=== PATIENT | female | born 1985 | race Caucasian/White ===

== ENCOUNTER 2016-09-19 23:39 | Emergency (ER) | payer OTHER ==
--- NOTE | 2016-09-19 23:57 | ED CLINICAL REPORT ---
Clinical Report - Physicians/Mid Levels [facility] [address] [place] [place] [address] 09/19/2016 23:41 Patient: OTTO FONTANA Time Seen: 23:48. Arrived- By private vehicle. Historian- patient. HISTORY OF PRESENT ILLNESS Chief Complaint: TENDER AREA. This started several days ago and is still present. It is described as painful. It has been located on the left arm. No cause has been identified. Similar symptoms previously: Once. Recent medical care: Not recently seen/assessed. REVIEW OF SYSTEMS No fever, chills, sore throat, cough or difficulty breathing. No hoarseness, lump in throat, enlarged lymph nodes, headache or eye irritation. No chest pain, abdominal pain, nausea, diarrhea or difficulty with urination. No joint pain or vomiting. All systems otherwise negative, except as recorded above. PAST HISTORY Problems: Tetanus Status. Nasal Fracture. Hepatitis. Constipation. Abscess. Cystitis. Bowel Obstruction. Migraine Headache. Immunizations. LNMP - Last Normal Menstrual Period. Additional Surgeries: Appendectomy. Bowel Surgery. . Dilatation & Curettage. Tubal Ligation. Medications: None. Allergies: No Known Drug Allergy. SOCIAL HISTORY Smoker- current status unknown. Alcohol use. History of drug use: heroin. ADDITIONAL NOTES The nursing notes have been reviewed. PHYSICAL EXAM Vital Signs: 09/19/2016 23:45 BP: 117/75. HR: 118. RR: 18. O2 saturation: 100%. Temp: 98.3 F. Pain level now: 710. Have been reviewed. Appearance: Alert. Oriented X3. No acute distress. Eyes: Pupils equal, round and reactive to light. Conjunctivae and eyelids normal. ENT: Nose normal. Respiratory: No respiratory distress. Skin: Skin warm and dry. Medium area of cellulitis with tenderness, erythema and warmth to left arm (PT has a vague, 3 cm area of mild induration associated with the cellulitis. No fluctuance or clear-cut abscess.). Extremities: (Normal inspection, other than the cellulitis noted above.). Neuro: Oriented X 3. No motor deficit. No sensory deficit. LABS, X-RAYS, AND EKG Pulse Oximetry: 09/19/2016 23:45 O2 saturation: 100%. (FIO2 - room air). Interpretation: normal. PROGRESS AND PROCEDURES Course of Care: I d/w her that the induration may represent an early abscess, or it may represent induration from the cellulitis without a purulent collection. I have given the pt the option of I&D attempt with the understanding that nothing may come out at this time, or the option to do antibiotics and hot-packing. Pt stated she would like to do a trial of antibiotics before having I&D. Pt was given doses of Bactrim DS and of Toradol. Patient counseled in person regarding the patient's stable condition, diagnosis and need for follow-up. Concerns were addressed. Old medical records reviewed. Disposition: Discharged. Condition: stable. CLINICAL IMPRESSION Cellulitis of the left upper arm. INSTRUCTIONS Warnings: GENERAL WARNINGS: Return or contact your physician immediately if your condition worsens or changes unexpectedly, if not improving as expected, or if other problems arise. Prescription Medications: Bactrim DS 800 mg / 160 mg: take 1 tablet orally every 12 hours for 10 days. No refill. Substitution is permissible. Follow-up: Follow up with your doctor in four days if not better. Understanding of the discharge instructions verbalized by patient. (Electronically signed by Bindu Pink MD 09/20/2016 0:26)
--- NOTE | 2016-09-19 23:57 | ED CLINICAL REPORT ---
Clinical Report - Physicians/Mid Levels [facility] [address] [place] [place] [address] 09/19/2016 23:41 Patient: OTTO FONTANA Time Seen: 23:48. Arrived- By private vehicle. Historian- patient. HISTORY OF PRESENT ILLNESS Chief Complaint: TENDER AREA. This started several days ago and is still present. It is described as painful. It has been located on the left arm. No cause has been identified. Similar symptoms previously: Once. Recent medical care: Not recently seen/assessed. REVIEW OF SYSTEMS No fever, chills, sore throat, cough or difficulty breathing. No hoarseness, lump in throat, enlarged lymph nodes, headache or eye irritation. No chest pain, abdominal pain, nausea, diarrhea or difficulty with urination. No joint pain or vomiting. All systems otherwise negative, except as recorded above. PAST HISTORY Problems: Tetanus Status. Nasal Fracture. Hepatitis. Constipation. Abscess. Cystitis. Bowel Obstruction. Migraine Headache. Immunizations. LNMP - Last Normal Menstrual Period. Additional Surgeries: Appendectomy. Bowel Surgery. . Dilatation & Curettage. Tubal Ligation. Medications: None. Allergies: No Known Drug Allergy. SOCIAL HISTORY Smoker- current status unknown. Alcohol use. History of drug use: heroin. ADDITIONAL NOTES The nursing notes have been reviewed. PHYSICAL EXAM Vital Signs: 09/19/2016 23:45 BP: 117/75. HR: 118. RR: 18. O2 saturation: 100%. Temp: 98.3 F. Pain level now: 710. Have been reviewed. Appearance: Alert. Oriented X3. No acute distress. Eyes: Pupils equal, round and reactive to light. Conjunctivae and eyelids normal. ENT: Nose normal. Respiratory: No respiratory distress. Skin: Skin warm and dry. Medium area of cellulitis with tenderness, erythema and warmth to left arm (PT has a vague, 3 cm area of mild induration associated with the cellulitis. No fluctuance or clear-cut abscess.). Extremities: (Normal inspection, other than the cellulitis noted above.). Neuro: Oriented X 3. No motor deficit. No sensory deficit. LABS, X-RAYS, AND EKG Pulse Oximetry: 09/19/2016 23:45 O2 saturation: 100%. (FIO2 - room air). Interpretation: normal. PROGRESS AND PROCEDURES Course of Care: I d/w her that the induration may represent an early abscess, or it may represent induration from the cellulitis without a purulent collection. I have given the pt the option of I&D attempt with the understanding that nothing may come out at this time, or the option to do antibiotics and hot-packing. Pt stated she would like to do a trial of antibiotics before having I&D. Pt was given doses of Bactrim DS and of Toradol. Patient counseled in person regarding the patient's stable condition, diagnosis and need for follow-up. Concerns were addressed. Old medical records reviewed. Disposition: Discharged. Condition: stable. CLINICAL IMPRESSION Cellulitis of the left upper arm. INSTRUCTIONS Warnings: GENERAL WARNINGS: Return or contact your physician immediately if your condition worsens or changes unexpectedly, if not improving as expected, or if other problems arise. Prescription Medications: Bactrim DS 800 mg / 160 mg: take 1 tablet orally every 12 hours for 10 days. No refill. Substitution is permissible. Follow-up: Follow up with your doctor in four days if not better. Understanding of the discharge instructions verbalized by patient. (Electronically signed by Bindu Pink MD 09/20/2016 0:26)
--- NOTE | 2016-09-19 23:57 | ED NURSING NOTES ---
Clinical Report - Nurses [facility] [address] [place] [address] 09/19/2016 23:41 Patient: OTTO FONTANA TRIAGE Triage time 23:45 Sep 19 2016. Acuity: LEVEL 4. Chief Complaint: SKIN PROBLEM and TENDER AREA and . redness. 23:51 09/19/16. SEPSIS SCREEN: Sepsis Screen. Negative (no infection suspected/documented). --23:51 Jia Purcell R.N. 23:45 09/19/16. BP: 117/75. HR: 118. RR: 18. O2 saturation: 100%. Temp: 98.3 F. Pain level now: 01/24. --23:51 Jia Purcell R.N. Weight: 65.7 kg stated. Height/Length: 63 inches Per Patient. BMI: 25.7. --23:44 Jia Purcell R.N. Medications None. --23:50 Jia Purcell R.N. Allergies No Known Drug Allergy. --23:50 Jia Purcell R.N. Medication/allergy information source: the patient. --23:51 Jia Purcell R.N. History Arrived by private vehicle, and accompanied by friend. Reported as located on the left arm. Onset. (3 days). ( Admits to using IV/IM heroin daily. Onset 3 days ago in left upper outer arm. Red, tender area, pain with ROM). Treatment DIRECTOR TRANSPORTATION: None. PAST MEDICAL HX: Last normal menstrual period was 6 weeks ago. Sexual history - sexually active. Has not received tetanus. SOCIAL HX: Heavy tobacco smoker (cigarette)- 1 pack per day. Occasional alcohol use. History of heavy IV drug use: heroin. No infectious disease exposure. ABUSE ASSESSMENT: No report of abuse. NUTRITIONAL RISK ASSESSMENT: The nutritional risk assessment revealed no deficiencies. FUNCTIONAL ASSESSMENT: Functional assessment: no impairments noted. LEARNING NEEDS ASSESSMENT: The learning needs assessment revealed no barriers. SKIN INTEGRITY ASSESSMENT: Skin integrity risk assessment completed. No skin integrity risk identified. --23:51 Jia Purcell R.N. PROBLEMS: Bronchitis. Sprain. Tetanus Status. Contusion. Hepatitis. Abscess. Cystitis. Bowel Obstruction. --23:50 Jia Purcell R.N. ADDITIONAL SURGERIES: Appendectomy. Bowel Surgery. . Dilatation & Curettage. Tubal Ligation. --23:50 Jia Purcell R.N. Interventions ID band on patient. --23:51 Jia Purcell R.N. PHYSICAL ASSESSMENT 23:52 09/19/16. GENERAL / NEURO / PSYCH: Alert. Oriented X 4. HEENT: Pupils equal, round and reactive to light. RESPIRATORY: Breath sounds within normal limits. CVS: Pulses within normal limits. GI / : Abdomen nontender. SKIN: Skin is warm and dry. Skin tenderness- associated with erythema, swelling and increased warmth- left upper outer arm. --23:52 Jia Purcell R.N. NURSING PROGRESS NOTES 23:51 09/19/16. Patient gowned. Reassurance given. Two patient identifiers checked. Side rails up x 1. Bed placed in lowest position. Brakes of bed on. --23:51 Jia Purcell R.N. 00:00 09/20/2016 Bactrim DS (Sulfamethoxazole-TMP DS) PO Tablets 1 tab given. Allergies verified and confirmed 5 rights. --00:00 Jia Purcell R.N. 00:00 09/20/2016 Toradol (Ketorolac Tromethamine) IM 60 mg given. Given in the left gluteus bernard. Allergies verified and confirmed 5 rights. --00:00 Jia Purcell R.N. DISPOSITION / DISCHARGE 00:15 09/20/2016 Bactrim DS PO Response: no adverse reaction. --00:15 Jia Purcell R.N. 00:15 09/20/2016 Toradol IM Response: no adverse reaction. --00:15 Jia Purcell R.N. 00:15 09/20/16. Departure time: 00:15 Sep 20 2016. Condition at departure: improved and stable. The goals identified in the patient's plan of care were met. No learning barriers present. Discharge instructions provided and reviewed with the patient. Reviewed warnings (stop using heroin). Reviewed medication(s) side effects, precautions, dosing and course information. Prescription(s) given to the patient. Reviewed fever care and wound care instructions. Reviewed referral to a primary care physician for followup. Summary of care provided to patient via paper. Patient verbalized understanding. Written instructions provided in Kazakh. The patient was discharged home and accompanied by spouse. She left the Emergency Department ambulatory and via private vehicle. Spouse driving. --00:15 Jia Purcell R.N. 23:45 09/19/16. BP: 117/75. HR: 118. RR: 18. O2 saturation: 100%. Temp: 98.3 F. Pain level now: 01/24. --00:15 Jia Purcell R.N. Locked/Released at 09/20/2016 0:16 by Jia Purcell R.N.
--- NOTE | 2016-09-19 23:57 | ED ORDER SUMMARY ---
..... Patient: OTTO FONTANA OrderSheet [facility] VisitID: [id number] [address] [place] [address] 31y, F Registration Date/Time: 09/19/2016 ORDER SHEET Weight: 65.7 kg (stated) Allergies: No Known Drug Allergy GENERAL ORDERS: MEDICATION ORDERS: Toradol IM 60 mg (NOW) (23:55 09/19/2016 Bright JEWELL) (0:00 EInderbitzen R.N.) Bactrim DS PO (Tablet 800-160 mg) 1 tab (NOW) (23:56 09/19/2016 Bright JEWELL) (0:00 EInannetteerbitzen R.N.) IV FLUIDS: ORDER SHEET NOTES: [Electronically signed by Jia Purcell R.N. (00:16 09/20/2016)] [Electronically signed by Bindu Pink MD (00:26 09/20/2016)] [Electronically locked/signed by Jia Purcell R.N. (00:16 09/20/2016)]
--- NOTE | 2016-09-19 23:57 | ED ORDER SUMMARY ---
..... Patient: OTTO FONTANA OrderSheet [facility] VisitID: [id number] [address] [place] [address] 31y, F Registration Date/Time: 09/19/2016 ORDER SHEET Weight: 65.7 kg (stated) Allergies: No Known Drug Allergy GENERAL ORDERS: MEDICATION ORDERS: Toradol IM 60 mg (NOW) (23:55 09/19/2016 Bright JEWELL) (0:00 EInderbitzen R.N.) Bactrim DS PO (Tablet 800-160 mg) 1 tab (NOW) (23:56 09/19/2016 Bright JEWELL) (0:00 EInannetteerbitzen R.N.) IV FLUIDS: ORDER SHEET NOTES: [Electronically signed by Jia Purcell R.N. (00:16 09/20/2016)] [Electronically signed by Bindu Pink MD (00:26 09/20/2016)] [Electronically locked/signed by Jia Purcell R.N. (00:16 09/20/2016)]
--- NOTE | 2016-09-20 00:26 | ED MED RECONCILIATION SUMMARY ---
Patient: OTTO FONTANA Medication Reconciliation Report [facility] VisitID: [id number] [address] [place] [address] 31y, F Registration Date/Time: 09/19/2016 Weight: 65.7 kg Height/Length: 63 in. BMI: 25.7 ALLERGIES: No Known Drug Allergy The patient's Home Medications are listed below: NONE. The source(s) of the original Home Medication information: patient The following Medications were given to the patient in the Emergency Department: Bactrim DS [PO] PO 1 tab, administered: 09/20/2016 12:00:00 AM Toradol [IM] IM 60 mg, administered: 09/20/2016 12:00:00 AM The following Medications were prescribed to the patient: Bactrim DS 800 mg / 160 mg: take 1 tablet orally every 12 hours for 10 days. No refill. Substitution is permissible. -- Bindu Pink MD
--- NOTE | 2016-09-20 00:26 | ED MAR SUMMARY ---
..... Medication Administration Record [facility] [address] [place] [address] Patient: OTTO FONTANA Visit ID: [id number] 31y, F Weight: 65.7 kg Height/Length: 63 in BMI: 25.7 ALLERGIES: No Known Drug Allergy Given 00:00 09/20/2016 Jia Purcell R.N. Medication Administered: TORADOL [IM] (KETOROLAC TROMETHAMINE), Dose: 60 mg IM. Medication Ordered: Toradol IM 60 mg (NOW). Given 00:00 09/20/2016 Jia Purcell R.N. Medication Administered: BACTRIM DS [PO] (SULFAMETHOXAZOLE-TMP DS), Dose: 1 tab Tablets PO. Medication Ordered: Bactrim DS PO (Tablet 800-160 mg) 1 tab (NOW).
--- NOTE | 2016-09-20 00:26 | ED DISCHARGE INSTRUCTIONS ---
Patient: OTTO FONTANA General Instructions [facility] VisitID: [id number] [place] [address] 31y, F Registration Date/Time: 09/19/2016 Cellulitis of the left upper arm. INSTRUCTIONS Warnings: GENERAL WARNINGS: Return or contact your physician immediately if your condition worsens or changes unexpectedly, if not improving as expected, or if other problems arise. Prescription Medications: Bactrim DS 800 mg / 160 mg: take 1 tablet orally every 12 hours for 10 days. No refill. Substitution is permissible. Follow-up: Follow up with your doctor in four days if not better. Understanding of the discharge instructions verbalized by patient. ADDITIONAL INFORMATION Cellulitis You have an infection of the skin known as cellulitis. This usually starts with a scrape, cut, insect bite, blister or other opening in the skin which becomes infected. This is a serious condition. It must be watched closely to be sure the infection is not spreading. With antibiotic treatment, the size of the red area will gradually shrink in size until the skin returns to normal. This will take 7-10 days. The red area should never increase in size once the antibiotic medicine has been started. Occasionally, an infection will be resistant to one antibiotic and another one will have to be used. Home Care: 1) Limit the use of the affected part, since excess movement can cause the infection to spread. 2) If the infection is on your leg, walk as little as possible during the first few days of the treatment. Keep your leg elevated while sitting. This will reduce swelling. 3) Take all of the antibiotic medicine exactly as directed until it is gone. Be careful not to miss any doses, especially during the first seven days. Follow Up with your doctor or this facility as directed. Check the infected area daily for the warning signs listed below. Get Prompt Medical Attention if any of the following occur: -- Spreading area of redness -- Increasing swelling or pain -- Appearance of pus or drainage -- Fever over 100.4 F (38.0 C) oral, or over 101.4 F (38.6 C) rectal, after two days on antibiotics You have been given the following additional information: Cellulitis (Electronically signed by Bindu Pink MD 09/20/2016 0:26)
--- NOTE | 2016-09-20 00:26 | ED MED RECONCILIATION SUMMARY ---
Patient: OTTO FONTANA Medication Reconciliation Report [facility] VisitID: [id number] [address] [place] [address] 31y, F Registration Date/Time: 09/19/2016 Weight: 65.7 kg Height/Length: 63 in. BMI: 25.7 ALLERGIES: No Known Drug Allergy The patient's Home Medications are listed below: NONE. The source(s) of the original Home Medication information: patient The following Medications were given to the patient in the Emergency Department: Bactrim DS [PO] PO 1 tab, administered: 09/20/2016 12:00:00 AM Toradol [IM] IM 60 mg, administered: 09/20/2016 12:00:00 AM The following Medications were prescribed to the patient: Bactrim DS 800 mg / 160 mg: take 1 tablet orally every 12 hours for 10 days. No refill. Substitution is permissible. -- Bindu Pink MD
--- NOTE | 2016-09-20 00:26 | ED MAR SUMMARY ---
..... Medication Administration Record [facility] [address] [place] [address] Patient: OTTO FONTANA Visit ID: [id number] 31y, F Weight: 65.7 kg Height/Length: 63 in BMI: 25.7 ALLERGIES: No Known Drug Allergy Given 00:00 09/20/2016 Jia Purcell R.N. Medication Administered: TORADOL [IM] (KETOROLAC TROMETHAMINE), Dose: 60 mg IM. Medication Ordered: Toradol IM 60 mg (NOW). Given 00:00 09/20/2016 Jia Purcell R.N. Medication Administered: BACTRIM DS [PO] (SULFAMETHOXAZOLE-TMP DS), Dose: 1 tab Tablets PO. Medication Ordered: Bactrim DS PO (Tablet 800-160 mg) 1 tab (NOW).
== END 2016-09-20 00:15 | disposition home or self-care (01) ==
LOC: ED SRH 23:39
DX: L03.114 Cellulitis of left upper limb (principal)

== ENCOUNTER 2016-09-22 17:53 | Emergency (ER) | payer OTHER ==
--- NOTE | 2016-09-22 19:29 | DIAGNOSTIC IMAGING REPORT ---
PROCEDURE: US SOFT TISSUE ANYWHERE INDICATION: LEFT ARM INFECTION TECHNIQUE: Villalta scale and color Doppler sonographic images of the left upper arm erythematous area were obtained COMPARISON: None. FINDINGS: No significant skin thickening. There is a subcutaneous fluid collection in the area of redness in the left upper lateral arm measuring 4.2 x 4.1 x 1.8 cm. It is somewhat irregular but fairly well defined. There is increased vascularity in the peripheral tissues. The fluid collection begins about 1 cm below the skin surface. IMPRESSION: 1. Subcutaneous fluid collection, likely abscess, underlying an area of cellulitis in the left upper arm. 2. Findings conveyed by the technologist to the emergency room provider.
--- NOTE | 2016-09-23 02:37 | ED NURSING NOTES ---
Clinical Report - Nurses [facility] [place] [address] 09/22/2016 17:55 Patient: OTTO FONTANA TRIAGE Triage time 18:09. Acuity: LEVEL 4. Chief Complaint: SKIN LESION and . left arm. Alert. SEPSIS SCREEN: Sepsis Screen. Negative (no infection suspected/documented). --18:16 Katelin Douglas R.N. 18:09 09/22/16. BP: 111/65 taken on the right arm. HR: 102. RR: 18. O2 saturation: 100%. Temp: 97.7 F. Pain level now: 03/27. --18:16 Katelin Douglas R.N. Weight: 65.7 kg stated. Height/Length: 63 inches Per Patient. BMI: 25.7. --18:11 Katelin Douglas R.N. Medications Bactrim DS Oral. --18:10 Katelin Douglas R.N. ClonazePAM Oral 1 mg, as needed, according to JAMIL report, pt did not mention this med. --19:02 Katelin Douglas R.N. Allergies No Known Drug Allergy. --18:10 Katelin Douglas R.N. History Arrived by private vehicle. Historian: patient. Primary physician (Janine Fitzpatrick). Reported as (left upper arm). Onset. (5 days ago). Treatment DIRECTOR SERVICE: (Aleve). PAST MEDICAL HX: Immunizations: status is unknown. Denies current . SOCIAL HX: Heavy tobacco smoker (cigarette)- 1 pack per day. History of drug use. Is a recovering addict. (starting suboxone in next couple days). No alcohol use. SELF HARM ASSESSMENT: A self harm assessment was performed. The patient answered "no" to the question "Do you have thoughts of harming or killing yourself?". ABUSE ASSESSMENT: Abuse assessment: ('yes") The patient was asked "Do you feel safe in your home?". --18:16 Katelin Douglas R.N. Accompanied by friend. --18:16 Katelin Douglas R.N. PROBLEMS: Cellulitis. Bronchitis. Abrasion(s). Nasal Fracture. Contusion. Hepatitis. Constipation. Abscess. Cystitis. Bowel Obstruction. Migraine Headache. --18:09 Katelin Douglas R.N. ADDITIONAL SURGERIES: Appendectomy. Bowel Surgery. . Dilatation & Curettage. Tubal Ligation. --18:09 Katelin Douglas R.N. Assessment The patient states feels the same. --18:16 Katelin Douglas R.N. Interventions ID band on patient. To room. --18:16 Katelin Douglas R.N. PHYSICAL ASSESSMENT 18:16 09/22/16. GENERAL / NEURO / PSYCH: Alert. Oriented X 4. --18:16 Katelin Douglas R.N. NURSING PROGRESS NOTES 18:16 09/22/16. Head of bed elevated. Reassurance given. Patient identifiers checked. Call light placed in reach. Bed placed in lowest position. Patient ready for evaluation- chart flagged. --18:16 Katelin Douglas R.N. 18:56 09/22/2016 Ultram (TraMADol HCl) PO 50 mg given. Allergies verified, confirmed 5 rights and sedative warning given. --18:56 Katelin Douglas R.N. 18:57 09/22/16. ( Pt's friend came to nurses station wanting pain med for pt., which had been ordered about 5 minutes prior, med given, asked pt to use her call light if she needs anything.). --18:57 Katelin Douglas R.N. 18:57 09/22/16. ( Ultrasound in room). --18:57 Katelin Douglas R.N. Care transferred and report received. --19:07 Andrew Gu correction to prior entry -. Care transferred and report received. --19:08 Lexii Flores R.N. 19:58 09/22/2016 Demerol (Meperidine HCl) IM 50 mg given. Given in the left ventral gluteus. Allergies verified, confirmed 5 rights and sedative warning given to the patient. --19:58 Lexii Flores R.N. I & D: Incision and Drainage of abscess performed by ED physician. Preparation: Incision and Drainage tray set up with 2% lidocaine. Post-procedure: bleeding controlled. --20:30 Lexii Flores R.N. Applied clean dressing consisting of 4x4 gauze. Secured with tape. --20:30 Lexii Flores R.N. DISPOSITION / DISCHARGE 20:30 09/22/16. BP: 109/69. HR: 100. RR: 15. O2 saturation: 97% on room air. Temp: 98 F (oral). Henderson- pain scale: /10. --20:31 Lexii Flores R.N. Condition at departure: improved and stable. No learning barriers present. Discharge instructions provided and reviewed with the patient. Reviewed medication(s) side effects, precautions, dosing and course information. Prescription(s) given to the patient. Patient verbalized understanding. Written instructions provided in Peruvian. The patient was discharged home and accompanied by seat trimmer. She left the Emergency Department ambulatory and via private vehicle. Human Resources Office Manager driving. --20:37 Lexii Flores R.N. Locked/Released at 09/22/2016 20:37 by Lexii Flores R.N.
--- NOTE | 2016-09-23 02:37 | ED CLINICAL REPORT ---
Clinical Report - Physicians/Mid Levels [facility] [address] [place] [address] 09/22/2016 17:55 Patient: OTTO FONTANA Time Seen: 18:09. Arrived- By private vehicle. Historian- patient. CPT: ER phys charges level 3 plus (#360040). Abscess complicated I&D (#[id number]). HISTORY OF PRESENT ILLNESS Chief Complaint: UPPER EXTREMITY PAIN and SWELLING. Severity is described as being moderate in degree. It has become recently worse. The quality is noted to be sharp, aching and "pain". 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 Symptoms located in the area of the left arm. No chest pain, difficulty breathing, sensory loss, motor loss or repetitive hand use at work. She has had redness and swelling. Patient notes an injury. Mechanism of injury- (IVDA heroin). 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 Seen for similar symptoms. Evaluation/treatment: antibiotic prescribed. Diagnosis: cellulitis. REVIEW OF SYSTEMS No fever, chills, headache, sore throat or cough. No enlarged lymph nodes, neck pain, abdominal pain, nausea or vomiting. No difficulty with urination or urinary frequency. She has had skin rash. All systems otherwise negative, except as recorded above. PAST HISTORY Prior I&D. Medications: ClonazePAM Oral 1 mg, as needed, according to JAMIL report, pt did not mention this med. Bactrim DS Oral. Allergies: No Known Drug Allergy. SOCIAL HISTORY History of heavy IV drug use: heroin. Is a recovering addict. ADDITIONAL NOTES The nursing notes have been reviewed. PHYSICAL EXAM Vital Signs: 09/22/2016 18:09 BP: 111/65. HR: 102. RR: 18. O2 saturation: 100%. Temp: 97.7 F. Pain level now: 9/10. Appearance: Alert. Anxious. Appears to be in pain. Patient in mild distress. Eyes: Eyes normal inspection. ENT: Pharynx normal. Neck: Normal inspection. CVS: Normal heart rate and rhythm. Heart sounds normal. No cardiac murmur. Respiratory: No respiratory distress. Abdomen: Soft and nontender. Back: Normal inspection. Skin: Skin intact. Skin warm. Extremities: Left arm: moderate erythema, tenderness and swelling located in the lower arm. Neurovascular intact distally. No ecchymosis or deformity. Neuro: Oriented X 3. No motor deficit. No sensory deficit. LABS, X-RAYS, AND EKG Laboratory Tests: Culture, Wound Deep: (CURTIS: 09/22/2016 20:25) ( MsgRcvd 09/24/2016 12:01) IP SPECIMEN DESCRIPTION: SWAB Test Result Flag Units (Reference) GRAM STAIN, WOUND, DEEP EPITHELIAL CELLS: FEW GRAM POSITIVE COCCI: FEW WHITE BLOOD CELLS: RARE POLY -- ARM CULTURE, WOUND DEEP, AEROBIC DATE: 09/24/16 PRELIM REPORT: PRELIMINARY REPORT #2 -- STAAUR GROWTH: HEAVY GROWTH ID AND SENS TO FOLLOW: SENSITIVITY TO FOLLOW CULTURE, ANAEROBIC, WOUND DEEP DATE: 09/24/16 NO ANAEROBIC GROWTH AT:: NO ANAEROBES ISOLATED AT 2 DAYS PRELIM REPORT: PRELIMINARY REPORT #1 . PROGRESS AND PROCEDURES Incision & Drainage of Abscess: The abscess is located in the left arm. The risks of the procedure, benefits and alternatives were explained. Anesthesia provided using 2% lidocaine with bicarb. Skin cleansed with Hibiclens. Ultrasound utilized to confirm presence and determine location of abscess. The abscess was incised with a #11 surgical blade. A moderate amount of pus was drained. Cavity was irrigated with saline and packed with gauze. Sample obtained for cultures and gram stain. A dressing was applied. Estimated blood loss: 3 mL. Course of Care: Pt states she will not let practitioner work on abscess until she gets something for pain. Ultram 50 mg po given so patient would allow US of her arm. Pt indicates the ultram did not help but allowed the US. US shows a 4 by 4 cm abscess . 19:53 09/22/16. Pt now insists on pain medication again before I&D . Will not allow attempt until gets "a shot". Says she got a shot last time when seen here 3 days ago and diagnosed with cellulitis and given antibiotics. The shot was toradol 60 mg IM. This is offered again to the patient as it worked the first time. Pt refused this and specifically asked for a narcotic shot as she claimed the toradol would not help this worsening pain. Pt refused to try the toradol again. At that point the patient got quiet aggressive and elevated. She demanded a shot. I went to order a shot and patient was getting dressed to leave. She was notified that a shot is in process and she decided to stay and get her I&D. Demerol 50 mg IM ordered. Did not feel this would be harmful as long as out patient narcotics not ordered as the patient has a history of heroin and meth abuse. Patient/family counseled. Disposition: Discharged. Condition: stable and improved. CLINICAL IMPRESSION Single deep abscess to the left upper extremity with incision and drainage. Substance abuse problems: abuse of opiates and methamphetamine. Substance dependence problems: dependence on opiates and methamphetamine. INSTRUCTIONS Elevate affected areas above chest level today, for one days until better. Protect wound and keep wound area clean. Leave dressing in place until seen in follow-up. No strenuous activity. Warnings: Further evaluation is necessary. SEDATIVE MEDICATION: You were given sedative medication during your visit. Do not drive or operate dangerous machinery. Your Current Medications: CONTINUE TAKING THE FOLLOWING MEDICATIONS: Bactrim DS Oral. ClonazePAM Oral : 1 mg, prn, according to JAMIL report, pt did not mention this med. Prescription Medications: Cephalexin 500 mg: take 1 capsule orally every 6 hours for 10 days. No refill. Bactrim DS: take 1 tablet orally every 12 hours for 5 days. No refill. Substitution is not permissible. Follow-up: Follow up with your doctor in two days. Call for an appointment. Understanding of the discharge instructions verbalized by patient. Discharge instructions reviewed with and understanding was verbalized by international relations teacher. (Electronically signed by Ruslan Murray MD 09/24/2016 19:05)
--- NOTE | 2016-09-23 02:37 | ED NURSING NOTES ---
Clinical Report - Nurses [facility] [place] [address] 09/22/2016 17:55 Patient: OTTO FONTANA TRIAGE Triage time 18:09. Acuity: LEVEL 4. Chief Complaint: SKIN LESION and . left arm. Alert. SEPSIS SCREEN: Sepsis Screen. Negative (no infection suspected/documented). --18:16 Katelin Douglas R.N. 18:09 09/22/16. BP: 111/65 taken on the right arm. HR: 102. RR: 18. O2 saturation: 100%. Temp: 97.7 F. Pain level now: 03/27. --18:16 Katelin Douglas R.N. Weight: 65.7 kg stated. Height/Length: 63 inches Per Patient. BMI: 25.7. --18:11 Katelin Douglas R.N. Medications Bactrim DS Oral. --18:10 Katelin Douglas R.N. ClonazePAM Oral 1 mg, as needed, according to JAMIL report, pt did not mention this med. --19:02 Katelin Douglas R.N. Allergies No Known Drug Allergy. --18:10 Katelin Douglas R.N. History Arrived by private vehicle. Historian: patient. Primary physician (Janine Fitzpatrick). Reported as (left upper arm). Onset. (5 days ago). 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 PAST MEDICAL HX: Immunizations: status is unknown. Denies current . SOCIAL HX: Heavy tobacco smoker (cigarette)- 1 pack per day. History of drug use. Is a recovering addict. (starting suboxone in next couple days). No alcohol use. SELF HARM ASSESSMENT: A self harm assessment was performed. The patient answered "no" to the question "Do you have thoughts of harming or killing yourself?". ABUSE ASSESSMENT: Abuse assessment: ('yes") The patient was asked "Do you feel safe in your home?". --18:16 Katelin Douglas R.N. Accompanied by friend. --18:16 Katelin Douglas R.N. PROBLEMS: Cellulitis. Bronchitis. Abrasion(s). Nasal Fracture. Contusion. Hepatitis. Constipation. Abscess. Cystitis. Bowel Obstruction. Migraine Headache. --18:09 Katelin Douglas R.N. ADDITIONAL SURGERIES: Appendectomy. Bowel Surgery. . Dilatation & Curettage. Tubal Ligation. --18:09 Katelin Douglas R.N. Assessment The patient states feels the same. --18:16 Katelin Douglas R.N. Interventions ID band on patient. To room. --18:16 Katelin Douglas R.N. PHYSICAL ASSESSMENT 18:16 09/22/16. GENERAL / NEURO / PSYCH: Alert. Oriented X 4. --18:16 Katelin Douglas R.N. NURSING PROGRESS NOTES 18:16 09/22/16. Head of bed elevated. Reassurance given. Patient identifiers checked. Call light placed in reach. Bed placed in lowest position. Patient ready for evaluation- chart flagged. --18:16 Katelin Douglas R.N. 18:56 09/22/2016 Ultram (TraMADol HCl) PO 50 mg given. Allergies verified, confirmed 5 rights and sedative warning given. --18:56 Katelin Douglas R.N. 18:57 09/22/16. ( Pt's friend came to nurses station wanting pain med for pt., which had been ordered about 5 minutes prior, med given, asked pt to use her call light if she needs anything.). --18:57 Katelin Douglas R.N. 18:57 09/22/16. ( Ultrasound in room). --18:57 Katelni Douglas R.N. Care transferred and report received. --19:07 Andrew Gu correction to prior entry -. Care transferred and report received. --19:08 Lexii Flores R.N. 19:58 09/22/2016 Demerol (Meperidine HCl) IM 50 mg given. Given in the left ventral gluteus. Allergies verified, confirmed 5 rights and sedative warning given to the patient. --19:58 Lexii Flores R.N. I & D: Incision and Drainage of abscess performed by ED physician. Preparation: Incision and Drainage tray set up with 2% lidocaine. Post-procedure: bleeding controlled. --20:30 Lexii Flores R.N. Applied clean dressing consisting of 4x4 gauze. Secured with tape. --20:30 Lexii Flores R.N. DISPOSITION / DISCHARGE 20:30 09/22/16. BP: 109/69. HR: 100. RR: 15. O2 saturation: 97% on room air. Temp: 98 F (oral). Henderson- pain scale: /10. --20:31 Lexii Flores R.N. Condition at departure: improved and stable. No learning barriers present. Discharge instructions provided and reviewed with the patient. Reviewed medication(s) side effects, precautions, dosing and course information. Prescription(s) given to the patient. Patient verbalized understanding. Written instructions provided in Welsh. The patient was discharged home and accompanied by drilling contractor. She left the Emergency Department ambulatory and via private vehicle. Teacher Asst driving. --20:37 Lexii Flores R.N. Locked/Released at 09/22/2016 20:37 by Lexii Flores R.N.
--- NOTE | 2016-09-23 02:37 | ED CLINICAL REPORT ---
Clinical Report - Physicians/Mid Levels [facility] [address] [place] [address] 09/22/2016 17:55 Patient: OTTO FONTANA Time Seen: 18:09. Arrived- By private vehicle. Historian- patient. CPT: ER phys charges level 3 plus (#[id number]). Abscess complicated I&D (#[id number]). HISTORY OF PRESENT ILLNESS Chief Complaint: UPPER EXTREMITY PAIN and SWELLING. Severity is described as being moderate in degree. It has become recently worse. The quality is noted to be sharp, aching and "pain". 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 Symptoms located in the area of the left arm. No chest pain, difficulty breathing, sensory loss, motor loss or repetitive hand use at work. She has had redness and swelling. Patient notes an injury. Mechanism of injury- (IVDA heroin). 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 Seen for similar symptoms. Evaluation/treatment: antibiotic prescribed. Diagnosis: cellulitis. REVIEW OF SYSTEMS No fever, chills, headache, sore throat or cough. No enlarged lymph nodes, neck pain, abdominal pain, nausea or vomiting. No difficulty with urination or urinary frequency. She has had skin rash. All systems otherwise negative, except as recorded above. PAST HISTORY Prior I&D. Medications: ClonazePAM Oral 1 mg, as needed, according to JAMIL report, pt did not mention this med. Bactrim DS Oral. Allergies: No Known Drug Allergy. SOCIAL HISTORY History of heavy IV drug use: heroin. Is a recovering addict. ADDITIONAL NOTES The nursing notes have been reviewed. PHYSICAL EXAM Vital Signs: 09/22/2016 18:09 BP: 111/65. HR: 102. RR: 18. O2 saturation: 100%. Temp: 97.7 F. Pain level now: 9/10. Appearance: Alert. Anxious. Appears to be in pain. Patient in mild distress. Eyes: Eyes normal inspection. ENT: Pharynx normal. Neck: Normal inspection. CVS: Normal heart rate and rhythm. Heart sounds normal. No cardiac murmur. Respiratory: No respiratory distress. Abdomen: Soft and nontender. Back: Normal inspection. Skin: Skin intact. Skin warm. Extremities: Left arm: moderate erythema, tenderness and swelling located in the lower arm. Neurovascular intact distally. No ecchymosis or deformity. Neuro: Oriented X 3. No motor deficit. No sensory deficit. LABS, X-RAYS, AND EKG Laboratory Tests: Culture, Wound Deep: (CURTIS: 09/22/2016 20:25) ( MsgRcvd 09/24/2016 12:01) IP SPECIMEN DESCRIPTION: SWAB Test Result Flag Units (Reference) GRAM STAIN, WOUND, DEEP EPITHELIAL CELLS: FEW GRAM POSITIVE COCCI: FEW WHITE BLOOD CELLS: RARE POLY -- ARM CULTURE, WOUND DEEP, AEROBIC DATE: 09/24/16 PRELIM REPORT: PRELIMINARY REPORT #2 -- STAAUR GROWTH: HEAVY GROWTH ID AND SENS TO FOLLOW: SENSITIVITY TO FOLLOW CULTURE, ANAEROBIC, WOUND DEEP DATE: 09/24/16 NO ANAEROBIC GROWTH AT:: NO ANAEROBES ISOLATED AT 2 DAYS PRELIM REPORT: PRELIMINARY REPORT #1 . PROGRESS AND PROCEDURES Incision & Drainage of Abscess: The abscess is located in the left arm. The risks of the procedure, benefits and alternatives were explained. Anesthesia provided using 2% lidocaine with bicarb. Skin cleansed with Hibiclens. Ultrasound utilized to confirm presence and determine location of abscess. The abscess was incised with a #11 surgical blade. A moderate amount of pus was drained. Cavity was irrigated with saline and packed with gauze. Sample obtained for cultures and gram stain. A dressing was applied. Estimated blood loss: 3 mL. Course of Care: Pt states she will not let practitioner work on abscess until she gets something for pain. Ultram 50 mg po given so patient would allow US of her arm. Pt indicates the ultram did not help but allowed the US. US shows a 4 by 4 cm abscess . 19:53 09/22/16. Pt now insists on pain medication again before I&D . Will not allow attempt until gets "a shot". Says she got a shot last time when seen here 3 days ago and diagnosed with cellulitis and given antibiotics. The shot was toradol 60 mg IM. This is offered again to the patient as it worked the first time. Pt refused this and specifically asked for a narcotic shot as she claimed the toradol would not help this worsening pain. Pt refused to try the toradol again. At that point the patient got quiet aggressive and elevated. She demanded a shot. I went to order a shot and patient was getting dressed to leave. She was notified that a shot is in process and she decided to stay and get her I&D. Demerol 50 mg IM ordered. Did not feel this would be harmful as long as out patient narcotics not ordered as the patient has a history of heroin and meth abuse. Patient/family counseled. Disposition: Discharged. Condition: stable and improved. CLINICAL IMPRESSION Single deep abscess to the left upper extremity with incision and drainage. Substance abuse problems: abuse of opiates and methamphetamine. Substance dependence problems: dependence on opiates and methamphetamine. INSTRUCTIONS Elevate affected areas above chest level today, for one days until better. Protect wound and keep wound area clean. Leave dressing in place until seen in follow-up. No strenuous activity. Warnings: Further evaluation is necessary. SEDATIVE MEDICATION: You were given sedative medication during your visit. Do not drive or operate dangerous machinery. Your Current Medications: CONTINUE TAKING THE FOLLOWING MEDICATIONS: Bactrim DS Oral. ClonazePAM Oral : 1 mg, prn, according to JAMIL report, pt did not mention this med. Prescription Medications: Cephalexin 500 mg: take 1 capsule orally every 6 hours for 10 days. No refill. Bactrim DS: take 1 tablet orally every 12 hours for 5 days. No refill. Substitution is not permissible. Follow-up: Follow up with your doctor in two days. Call for an appointment. Understanding of the discharge instructions verbalized by patient. Discharge instructions reviewed with and understanding was verbalized by mac artist. (Electronically signed by Ruslan Murray MD 09/24/2016 19:05)
--- NOTE | 2016-09-23 02:37 | ED ORDER SUMMARY ---
..... Patient: OTTO FONTANA OrderSheet [facility] VisitID: [id number] [place] [address] 31y, F Registration Date/Time: 09/22/2016 ORDER SHEET Weight: 65.7 kg (stated) Allergies: No Known Drug Allergy GENERAL ORDERS: US Soft Tissue Anywhere (left arm) (r/o left arm abscess. ) Urgent (18:45 09/22/2016 Oralia JEWELL) (19:08 Meryl R.N.) Culture, Wound Deep (Arm) (swab) Urgent (20:23 09/22/2016 Oralia JEWELL) (Ack 20:28 Sylvainegekimana) (20:34 Jadenekimana) MEDICATION ORDERS: Ultram PO 50 mg (NOW) (18:49 09/22/2016 Oralia JEWELL) (18:56 LSullivan R.N.) Demerol IM 50 mg (NOW) (19:48 09/22/2016 Oralia JEWELL) (Ack 19:51 RCollier R.N.) (19:58 RCollier R.N.) IV FLUIDS: ORDER SHEET NOTES: [Electronically signed by Lexii Flores R.N. (20:37 09/22/2016)] [Electronically signed by Ruslan Murray MD (19:05 09/24/2016)] [Electronically locked/signed by Lexii Flores R.N. (20:37 09/22/2016)]
--- NOTE | 2016-09-23 02:37 | ED ORDER SUMMARY ---
..... Patient: OTTO FONTANA OrderSheet [facility] VisitID: [id number] [place] [address] 31y, F Registration Date/Time: 09/22/2016 ORDER SHEET Weight: 65.7 kg (stated) Allergies: No Known Drug Allergy GENERAL ORDERS: US Soft Tissue Anywhere (left arm) (r/o left arm abscess. ) Urgent (18:45 09/22/2016 Oralia JEWELL) (19:08 Meryl R.N.) Culture, Wound Deep (Arm) (swab) Urgent (20:23 09/22/2016 Oralia JEWELL) (Ack 20:28 Sylvainegekimana) (20:34 Jadenekimana) MEDICATION ORDERS: Ultram PO 50 mg (NOW) (18:49 09/22/2016 Oralia JEWELL) (18:56 LSullivan R.N.) Demerol IM 50 mg (NOW) (19:48 09/22/2016 Oralia JEWELL) (Ack 19:51 RCollier R.N.) (19:58 RCollier R.N.) IV FLUIDS: ORDER SHEET NOTES: [Electronically signed by Lexii Flores R.N. (20:37 09/22/2016)] [Electronically signed by Ruslan Murray MD (19:05 09/24/2016)] [Electronically locked/signed by Lexii Flores R.N. (20:37 09/22/2016)]
--- NOTE | 2016-09-24 19:06 | ED DISCHARGE INSTRUCTIONS ---
Patient: OTTO FONTANA General Instructions [facility] VisitID: [id number] [place] [address] 31y, F Registration Date/Time: 09/22/2016 Single deep abscess to the left upper extremity with incision and drainage. Substance abuse problems: abuse of opiates and methamphetamine. Substance dependence problems: dependence on opiates and methamphetamine. INSTRUCTIONS Elevate affected areas above chest level today, for one days until better. Protect wound and keep wound area clean. Leave dressing in place until seen in follow-up. No strenuous activity. Warnings: Further evaluation is necessary. SEDATIVE MEDICATION: You were given sedative medication during your visit. Do not drive or operate dangerous machinery. Your Current Medications: CONTINUE TAKING THE FOLLOWING MEDICATIONS: Bactrim DS Oral. ClonazePAM Oral : 1 mg, prn, according to JAMIL report, pt did not mention this med. Prescription Medications: Cephalexin 500 mg: take 1 capsule orally every 6 hours for 10 days. No refill. Bactrim DS: take 1 tablet orally every 12 hours for 5 days. No refill. Substitution is not permissible. Follow-up: Follow up with your doctor in two days. Call for an appointment. Understanding of the discharge instructions verbalized by patient. Discharge instructions reviewed with and understanding was verbalized by ornamental painter. ADDITIONAL INFORMATION Abscess [Incision & Drainage] An abscess (sometimes called a boil) occurs when bacteria get trapped under the skin and begin to grow. Pus forms inside the abscess as the body responds to the bacteria. An abscess can occur with an insect bite, ingrown hair, blocked oil gland, pimple, cyst, or puncture wound. Treatment of your abscess has required an incision to drain the pus. If the abscess pocket was large, a gauze packing may have been inserted. This will need to be removed and possibly replaced on your next visit. Antibiotics are not required in the treatment of a simple abscess, unless the infection is spreading into the skin around the wound (known as cellulitis). Healing of the wound will take about one to two weeks depending on the size of the abscess. Healthy tissue will grow from the bottom and sides of the opening until it seals over. Home Care: The wound may drain for the first two days. Cover the wound with a clean dry dressing. If the dressing becomes soaked with blood or pus, change it. If a gauze packing was placed inside the abscess cavity, you may be advised to remove it yourself. You may do this in the shower. Once the packing is removed, you should wash the area in the shower or bath 3 to 4 times a day, until the skin opening has closed. If you were prescribed antibiotics, take them as directed until they are all gone. You may use acetaminophen (Tylenol) or ibuprofen (Motrin, Advil) to control pain, unless another pain medicine was prescribed. [ NOTE: If you have liver disease or ever had a stomach ulcer, talk with your doctor before using these medicines.] Follow Up with your doctor as advised by our staff. If a gauze packing was inserted in your wound, it should be removed in 1-2 days. Check your wound every day for the signs of worsening infection listed below. Get Prompt Medical Attention if any of the following occur: Increasing redness or swelling Red streaks in the skin leading away from the wound Increasing local pain or swelling Continued pus draining from the wound two days after treatment Fever of 100.4F (38C) or higher, or as directed by your healthcare provider Staph Infection (MRSA) "Staph" is the short name for the common bacteria called "staphylococcus aureus". Staph bacteria are often present on the skin without causing an infection. If it gets under the skin an infection occurs. This causes redness, tenderness, swelling and sometimes fluid drainage. MRSA stands for "Methicillin-Resistant Staph Aureus". Unlike a common staph infection, MRSA bacteria are resistant to the usual antibiotics and harder to treat. Also, MRSA is more toxic than common staph bacteria. It can spread quickly throughout the body and cause a life-threatening illness. MRSA is spread to others by direct physical contact with the bacteria. MRSA can also be transmitted from items contaminated by a person who has the bacteria, such as bandages, towels, bed sheets, or sports equipment. It is not spread through the air. Once you have a MRSA skin infection, you are at risk of having it recur in the future. If MRSA infection is suspected, the doctor may take a wound culture to confirm the diagnosis. Any abscess will be drained. One or sometimes two antibiotics that work against MRSA will be prescribed. Home Care: 1) Take any antibiotics prescribed exactly as directed until they are gone. 2) Follow the same washing procedures as outlined for Household Members below. 3) Keep draining wounds covered with clean, dry bandages. Change dressings as they become soiled. 4) You and those in contact with you should wash their hands frequently with soap and warm water or use an alcohol-based hand wash barrel leader. Do this after each time you change the bandage or touch the wound. 5) Avoid sharing personal items such as towels, washcloths, razors, clothing, or uniforms. Wash soiled sheets, towels or clothes in hot water with laundry detergent. Use an automatic clothes dryer set on high to kill any remaining bacteria. 6) Remove any artificial nails and nail tunisian. 7) If you use a gym, wipe down equipment before and after each use. Treatment Of Household Members If you have been diagnosed with possible MRSA infection, those living with you are at higher risk of carrying the bacteria on their skin or in their nose, even if there is no sign of infection. Bacteria must be removed from the skin of all household members (including you) at the same time, so that it is not passed back and forth. Advise them to remove the bacteria as follows: Wash your whole body (scalp to toes) daily for five days with Hibiclens (chlorhexidine). Scrub fingernails with a brush for one minute twice a day. If any skin infections are present (boils, abscess, infected cut) these must be treated by a doctor. Washing alone will not treat a MRSA infection. Clean counter tops and children's toys; do not share personal items such as toothbrush and razors. It is okay to share glasses, plates, utensils. If antibiotic ointment was prescribed use it as directed. Follow Up with your doctor or as advised by our staff. If a wound culture was taken, call as directed in two days to obtain the results. If the culture result is positive for MRSA, tell medical personnel in the future that you were treated for this type of infection. Get Prompt Medical Attention if any of the following occur: -- Increasing redness, swelling or pain -- Red streaks in the skin around the wound -- Weakness or dizziness -- New appearance of pus or drainage from the wound -- New fever over 100.4 F (38.0 C) Cephalexin Monohydrate Oral tablet What is this medicine? CEPHALEXIN (sef a MADELINE in) is a cephalosporin antibiotic. It is used to treat certain kinds of bacterial infections It will not work for colds, flu, or other viral infections. How should I use this medicine? Take this medicine by mouth with a full glass of water. Follow the directions on the prescription label. This medicine can be taken with or without food. Take your medicine at regular intervals. Do not take your medicine more often than directed. Take all of your medicine as directed even if you think you are better. Do not skip doses or stop your medicine early. Talk to your machine egg washer regarding the use of this medicine in children. While this drug may be prescribed for selected conditions, precautions do apply. What side effects may I notice from receiving this medicine? Side effects that you should report to your doctor or health manager medicare marketing as soon as possible: allergic reactions like skin rash, itching or hives, swelling of the face, lips, or tongue breathing problems pain or trouble passing urine redness, blistering, peeling or loosening of the skin, including inside the mouth severe or watery diarrhea unusually weak or tired yellowing of the eyes, skin Side effects that usually do not require medical attention (report to your doctor or health manager medicare marketing if they continue or are bothersome): gas or heartburn genital or anal irritation headache joint or muscle pain nausea, vomiting What may interact with this medicine? probenecid some other antibiotics What if I miss a dose? If you miss a dose, take it as soon as you can. If it is almost time for your next dose, take only that dose. Do not take double or extra doses. There should be at least 4 to 6 hours between doses. Where should I keep my medicine? Keep out of the reach of children. Store at room temperature between 59 and 86 degrees F (15 and 30 degrees C). Throw away any unused medicine after the expiration date. What should I tell my health care provider before I take this medicine? They need to know if you have any of these conditions: kidney disease stomach or intestine problems, especially colitis an unusual or allergic reaction to cephalexin, other cephalosporins, penicillins, other antibiotics, medicines, foods, dyes or preservatives or trying to get breast-feeding What should I watch for while using this medicine? Tell your doctor or health manager medicare marketing if your symptoms do not begin to improve in a few days. Do not treat diarrhea with over the counter products. Contact your doctor if you have diarrhea that lasts more than 2 days or if it is severe and watery. If you have diabetes, you may get a false-positive result for sugar in your urine. Check with your doctor or health manager medicare marketing. Sulfamethoxazole, Trimethoprim Oral tablet What is this medicine? SULFAMETHOXAZOLE; TRIMETHOPRIM or SMX-TMP (suhl fuh meth OK airam zohl; trye METH oh prim) is a combination of a sulfonamide antibiotic and a second antibiotic, trimethoprim. It is used to treat or prevent certain kinds of bacterial infections. It will not work for colds, flu, or other viral infections. How should I use this medicine? Take this medicine by mouth with a full glass of water. Follow the directions on the prescription label. Take your medicine at regular intervals. Do not take it more often than directed. Do not skip doses or stop your medicine early. Talk to your machine egg washer regarding the use of this medicine in children. Special care may be needed. This medicine has been used in children as young as 2 months of age. What side effects may I notice from receiving this medicine? Side effects that you should report to your doctor or health manager medicare marketing as soon as possible: allergic reactions like skin rash or hives, swelling of the face, lips, or tongue breathing problems fever or chills, sore throat irregular heartbeat, chest pain joint or muscle pain pain or difficulty passing urine red pinpoint spots on skin redness, blistering, peeling or loosening of the skin, including inside the mouth unusual bleeding or bruising unusually weak or tired yellowing of the eyes or skin Side effects that usually do not require medical attention (report to your doctor or health manager medicare marketing if they continue or are bothersome): diarrhea dizziness headache loss of appetite nausea, vomiting nervousness What may interact with this medicine? Do not take this medicine with any of the following medications: aminobenzoate potassium dofetilide metronidazole This medicine may also interact with the following medications: SOPHIA inhibitors like benazepril, enalapril, lisinopril, and ramipril cyclosporine digoxin diuretics indomethacin medicines for diabetes methenamine methotrexate phenytoin potassium supplements pyrimethamine sulfinpyrazone tricyclic antidepressants warfarin What if I miss a dose? If you miss a dose, take it as soon as you can. If it is almost time for your next dose, take only that dose. Do not take double or extra doses. Where should I keep my medicine? Keep out of the reach of children. Store at room temperature between 20 to 25 degrees C (68 to 77 degrees F). Protect from light. Throw away any unused medicine after the expiration date. What should I tell my health care provider before I take this medicine? They need to know if you have any of these conditions: anemia asthma being treated with anticonvulsants if you frequently drink alcohol containing drinks kidney disease liver disease low level of folic acid or [id number] dehydrogenase poor nutrition or malabsorption porphyria severe allergies thyroid disorder an unusual or allergic reaction to sulfamethoxazole, trimethoprim, sulfa drugs, other medicines, foods, dyes, or preservatives or trying to get breast-feeding What should I watch for while using this medicine? Tell your doctor or health manager medicare marketing if your symptoms do not improve. Drink several glasses of water a day to reduce the risk of kidney problems. Do not treat diarrhea with over the counter products. Contact your doctor if you have diarrhea that lasts more than 2 days or if it is severe and watery. This medicine can make you more sensitive to the sun. Keep out of the sun. If you cannot avoid being in the sun, wear protective clothing and use a sunscreen. Do not use sun lamps or tanning beds/booths. You have been given the following additional information: Abscess, Incision And Drainage MRSA Skin Infection, Suspected Or Confirmed Cephalexin Monohydrate Oral tablet Sulfamethoxazole, Trimethoprim Oral tablet No strenuous activity. (Electronically signed by Ruslan Murray MD 09/24/2016 19:05)
--- NOTE | 2016-09-24 19:06 | ED MED RECONCILIATION SUMMARY ---
Patient: OTTO FONTANA Medication Reconciliation Report [facility] VisitID: [id number] [address] [place] [address] 31y, F Registration Date/Time: 09/22/2016 Weight: 65.7 kg Height/Length: 63 in. BMI: 25.7 ALLERGIES: No Known Drug Allergy The patient's Home Medications are listed below: CONTINUE TAKING THE FOLLOWING MEDICATIONS: Bactrim DS Oral ClonazePAM Oral 1 mg, according to JAMIL report, pt did not mention this med The source(s) of the original Home Medication information: Not obtained. The following Medications were given to the patient in the Emergency Department: Ultram [PO] PO 50 mg, administered: 09/22/2016 6:56:00 PM Demerol [IM] IM 50 mg, administered: 09/22/2016 7:58:00 PM The following Medications were prescribed to the patient: Cephalexin 500 mg: take 1 capsule orally every 6 hours for 10 days. No refill. -- Ruslan Murray MD Bactrim DS: take 1 tablet orally every 12 hours for 5 days. No refill. Substitution is not permissible. -- Ruslan Murray MD
--- NOTE | 2016-09-24 19:06 | ED MED RECONCILIATION SUMMARY ---
Patient: OTTO FONTANA Medication Reconciliation Report [facility] VisitID: [id number] [address] [place] [address] 31y, F Registration Date/Time: 09/22/2016 Weight: 65.7 kg Height/Length: 63 in. BMI: 25.7 ALLERGIES: No Known Drug Allergy The patient's Home Medications are listed below: CONTINUE TAKING THE FOLLOWING MEDICATIONS: Bactrim DS Oral ClonazePAM Oral 1 mg, according to JAMIL report, pt did not mention this med The source(s) of the original Home Medication information: Not obtained. The following Medications were given to the patient in the Emergency Department: Ultram [PO] PO 50 mg, administered: 09/22/2016 6:56:00 PM Demerol [IM] IM 50 mg, administered: 09/22/2016 7:58:00 PM The following Medications were prescribed to the patient: Cephalexin 500 mg: take 1 capsule orally every 6 hours for 10 days. No refill. -- Ruslan Murray MD Bactrim DS: take 1 tablet orally every 12 hours for 5 days. No refill. Substitution is not permissible. -- Ruslan Murray MD
--- NOTE | 2016-09-24 19:06 | ED DISCHARGE INSTRUCTIONS ---
Patient: OTTO FONTANA General Instructions [facility] VisitID: [id number] [place] [address] 31y, F Registration Date/Time: 09/22/2016 Single deep abscess to the left upper extremity with incision and drainage. Substance abuse problems: abuse of opiates and methamphetamine. Substance dependence problems: dependence on opiates and methamphetamine. INSTRUCTIONS Elevate affected areas above chest level today, for one days until better. Protect wound and keep wound area clean. Leave dressing in place until seen in follow-up. No strenuous activity. Warnings: Further evaluation is necessary. SEDATIVE MEDICATION: You were given sedative medication during your visit. Do not drive or operate dangerous machinery. Your Current Medications: CONTINUE TAKING THE FOLLOWING MEDICATIONS: Bactrim DS Oral. ClonazePAM Oral : 1 mg, prn, according to JAMIL report, pt did not mention this med. Prescription Medications: Cephalexin 500 mg: take 1 capsule orally every 6 hours for 10 days. No refill. Bactrim DS: take 1 tablet orally every 12 hours for 5 days. No refill. Substitution is not permissible. Follow-up: Follow up with your doctor in two days. Call for an appointment. Understanding of the discharge instructions verbalized by patient. Discharge instructions reviewed with and understanding was verbalized by shingle weaver. ADDITIONAL INFORMATION Abscess [Incision & Drainage] An abscess (sometimes called a boil) occurs when bacteria get trapped under the skin and begin to grow. Pus forms inside the abscess as the body responds to the bacteria. An abscess can occur with an insect bite, ingrown hair, blocked oil gland, pimple, cyst, or puncture wound. Treatment of your abscess has required an incision to drain the pus. If the abscess pocket was large, a gauze packing may have been inserted. This will need to be removed and possibly replaced on your next visit. Antibiotics are not required in the treatment of a simple abscess, unless the infection is spreading into the skin around the wound (known as cellulitis). Healing of the wound will take about one to two weeks depending on the size of the abscess. Healthy tissue will grow from the bottom and sides of the opening until it seals over. Home Care: The wound may drain for the first two days. Cover the wound with a clean dry dressing. If the dressing becomes soaked with blood or pus, change it. If a gauze packing was placed inside the abscess cavity, you may be advised to remove it yourself. You may do this in the shower. Once the packing is removed, you should wash the area in the shower or bath 3 to 4 times a day, until the skin opening has closed. If you were prescribed antibiotics, take them as directed until they are all gone. You may use acetaminophen (Tylenol) or ibuprofen (Motrin, Advil) to control pain, unless another pain medicine was prescribed. [ NOTE: If you have liver disease or ever had a stomach ulcer, talk with your doctor before using these medicines.] Follow Up with your doctor as advised by our staff. If a gauze packing was inserted in your wound, it should be removed in 1-2 days. Check your wound every day for the signs of worsening infection listed below. Get Prompt Medical Attention if any of the following occur: Increasing redness or swelling Red streaks in the skin leading away from the wound Increasing local pain or swelling Continued pus draining from the wound two days after treatment Fever of 100.4F (38C) or higher, or as directed by your healthcare provider Staph Infection (MRSA) "Staph" is the short name for the common bacteria called "staphylococcus aureus". Staph bacteria are often present on the skin without causing an infection. If it gets under the skin an infection occurs. This causes redness, tenderness, swelling and sometimes fluid drainage. MRSA stands for "Methicillin-Resistant Staph Aureus". Unlike a common staph infection, MRSA bacteria are resistant to the usual antibiotics and harder to treat. Also, MRSA is more toxic than common staph bacteria. It can spread quickly throughout the body and cause a life-threatening illness. MRSA is spread to others by direct physical contact with the bacteria. MRSA can also be transmitted from items contaminated by a person who has the bacteria, such as bandages, towels, bed sheets, or sports equipment. It is not spread through the air. Once you have a MRSA skin infection, you are at risk of having it recur in the future. If MRSA infection is suspected, the doctor may take a wound culture to confirm the diagnosis. Any abscess will be drained. One or sometimes two antibiotics that work against MRSA will be prescribed. Home Care: 1) Take any antibiotics prescribed exactly as directed until they are gone. 2) Follow the same washing procedures as outlined for Household Members below. 3) Keep draining wounds covered with clean, dry bandages. Change dressings as they become soiled. 4) You and those in contact with you should wash their hands frequently with soap and warm water or use an alcohol-based hand paediatric physiotherapist. Do this after each time you change the bandage or touch the wound. 5) Avoid sharing personal items such as towels, washcloths, razors, clothing, or uniforms. Wash soiled sheets, towels or clothes in hot water with laundry detergent. Use an automatic clothes dryer set on high to kill any remaining bacteria. 6) Remove any artificial nails and nail yemeni. 7) If you use a gym, wipe down equipment before and after each use. Treatment Of Household Members If you have been diagnosed with possible MRSA infection, those living with you are at higher risk of carrying the bacteria on their skin or in their nose, even if there is no sign of infection. Bacteria must be removed from the skin of all household members (including you) at the same time, so that it is not passed back and forth. Advise them to remove the bacteria as follows: Wash your whole body (scalp to toes) daily for five days with Hibiclens (chlorhexidine). Scrub fingernails with a brush for one minute twice a day. If any skin infections are present (boils, abscess, infected cut) these must be treated by a doctor. Washing alone will not treat a MRSA infection. Clean counter tops and children's toys; do not share personal items such as toothbrush and razors. It is okay to share glasses, plates, utensils. If antibiotic ointment was prescribed use it as directed. Follow Up with your doctor or as advised by our staff. If a wound culture was taken, call as directed in two days to obtain the results. If the culture result is positive for MRSA, tell medical personnel in the future that you were treated for this type of infection. Get Prompt Medical Attention if any of the following occur: -- Increasing redness, swelling or pain -- Red streaks in the skin around the wound -- Weakness or dizziness -- New appearance of pus or drainage from the wound -- New fever over 100.4 F (38.0 C) Cephalexin Monohydrate Oral tablet What is this medicine? CEPHALEXIN (sef a MADELINE in) is a cephalosporin antibiotic. It is used to treat certain kinds of bacterial infections It will not work for colds, flu, or other viral infections. How should I use this medicine? Take this medicine by mouth with a full glass of water. Follow the directions on the prescription label. This medicine can be taken with or without food. Take your medicine at regular intervals. Do not take your medicine more often than directed. Take all of your medicine as directed even if you think you are better. Do not skip doses or stop your medicine early. Talk to your software architect regarding the use of this medicine in children. While this drug may be prescribed for selected conditions, precautions do apply. What side effects may I notice from receiving this medicine? Side effects that you should report to your doctor or health account executive healthcare as soon as possible: allergic reactions like skin rash, itching or hives, swelling of the face, lips, or tongue breathing problems pain or trouble passing urine redness, blistering, peeling or loosening of the skin, including inside the mouth severe or watery diarrhea unusually weak or tired yellowing of the eyes, skin Side effects that usually do not require medical attention (report to your doctor or health account executive healthcare if they continue or are bothersome): gas or heartburn genital or anal irritation headache joint or muscle pain nausea, vomiting What may interact with this medicine? probenecid some other antibiotics What if I miss a dose? If you miss a dose, take it as soon as you can. If it is almost time for your next dose, take only that dose. Do not take double or extra doses. There should be at least 4 to 6 hours between doses. Where should I keep my medicine? Keep out of the reach of children. Store at room temperature between 59 and 86 degrees F (15 and 30 degrees C). Throw away any unused medicine after the expiration date. What should I tell my health care provider before I take this medicine? They need to know if you have any of these conditions: kidney disease stomach or intestine problems, especially colitis an unusual or allergic reaction to cephalexin, other cephalosporins, penicillins, other antibiotics, medicines, foods, dyes or preservatives or trying to get breast-feeding What should I watch for while using this medicine? Tell your doctor or health account executive healthcare if your symptoms do not begin to improve in a few days. Do not treat diarrhea with over the counter products. Contact your doctor if you have diarrhea that lasts more than 2 days or if it is severe and watery. If you have diabetes, you may get a false-positive result for sugar in your urine. Check with your doctor or health account executive healthcare. Sulfamethoxazole, Trimethoprim Oral tablet What is this medicine? SULFAMETHOXAZOLE; TRIMETHOPRIM or SMX-TMP (suhl fuh meth OK airam zohl; trye METH oh prim) is a combination of a sulfonamide antibiotic and a second antibiotic, trimethoprim. It is used to treat or prevent certain kinds of bacterial infections. It will not work for colds, flu, or other viral infections. How should I use this medicine? Take this medicine by mouth with a full glass of water. Follow the directions on the prescription label. Take your medicine at regular intervals. Do not take it more often than directed. Do not skip doses or stop your medicine early. Talk to your software architect regarding the use of this medicine in children. Special care may be needed. This medicine has been used in children as young as 2 months of age. What side effects may I notice from receiving this medicine? Side effects that you should report to your doctor or health account executive healthcare as soon as possible: allergic reactions like skin rash or hives, swelling of the face, lips, or tongue breathing problems fever or chills, sore throat irregular heartbeat, chest pain joint or muscle pain pain or difficulty passing urine red pinpoint spots on skin redness, blistering, peeling or loosening of the skin, including inside the mouth unusual bleeding or bruising unusually weak or tired yellowing of the eyes or skin Side effects that usually do not require medical attention (report to your doctor or health account executive healthcare if they continue or are bothersome): diarrhea dizziness headache loss of appetite nausea, vomiting nervousness What may interact with this medicine? Do not take this medicine with any of the following medications: aminobenzoate potassium dofetilide metronidazole This medicine may also interact with the following medications: SOPHIA inhibitors like benazepril, enalapril, lisinopril, and ramipril cyclosporine digoxin diuretics indomethacin medicines for diabetes methenamine methotrexate phenytoin potassium supplements pyrimethamine sulfinpyrazone tricyclic antidepressants warfarin What if I miss a dose? If you miss a dose, take it as soon as you can. If it is almost time for your next dose, take only that dose. Do not take double or extra doses. Where should I keep my medicine? Keep out of the reach of children. Store at room temperature between 20 to 25 degrees C (68 to 77 degrees F). Protect from light. Throw away any unused medicine after the expiration date. What should I tell my health care provider before I take this medicine? They need to know if you have any of these conditions: anemia asthma being treated with anticonvulsants if you frequently drink alcohol containing drinks kidney disease liver disease low level of folic acid or [id number] dehydrogenase poor nutrition or malabsorption porphyria severe allergies thyroid disorder an unusual or allergic reaction to sulfamethoxazole, trimethoprim, sulfa drugs, other medicines, foods, dyes, or preservatives or trying to get breast-feeding What should I watch for while using this medicine? Tell your doctor or health account executive healthcare if your symptoms do not improve. Drink several glasses of water a day to reduce the risk of kidney problems. Do not treat diarrhea with over the counter products. Contact your doctor if you have diarrhea that lasts more than 2 days or if it is severe and watery. This medicine can make you more sensitive to the sun. Keep out of the sun. If you cannot avoid being in the sun, wear protective clothing and use a sunscreen. Do not use sun lamps or tanning beds/booths. You have been given the following additional information: Abscess, Incision And Drainage MRSA Skin Infection, Suspected Or Confirmed Cephalexin Monohydrate Oral tablet Sulfamethoxazole, Trimethoprim Oral tablet No strenuous activity. (Electronically signed by Ruslan Murray MD 09/24/2016 19:05)
--- NOTE | 2016-09-24 19:06 | ED MAR SUMMARY ---
..... Medication Administration Record [facility] [address] [place] [address] Patient: OTTO FONTANA Visit ID: [id number] 31y, F Weight: 65.7 kg Height/Length: 63 in BMI: 25.7 ALLERGIES: No Known Drug Allergy Given 18:56 09/22/2016 Katelin Douglas, RDarcyN. Medication Administered: ULTRAM [PO] (TRAMADOL HCL), Dose: 50 mg PO. Medication Ordered: Ultram PO 50 mg (NOW). Given 19:58 09/22/2016 Lexii Flores, RDarcyN. Medication Administered: DEMEROL [IM] (MEPERIDINE HCL), Dose: 50 mg IM. Medication Ordered: Demerol IM 50 mg (NOW).
--- NOTE | 2016-09-24 19:06 | ED MAR SUMMARY ---
..... Medication Administration Record [facility] [address] [place] [address] Patient: OTTO FONTANA Visit ID: [id number] 31y, F Weight: 65.7 kg Height/Length: 63 in BMI: 25.7 ALLERGIES: No Known Drug Allergy Given 18:56 09/22/2016 Katelin Douglas, RDarcyN. Medication Administered: ULTRAM [PO] (TRAMADOL HCL), Dose: 50 mg PO. Medication Ordered: Ultram PO 50 mg (NOW). Given 19:58 09/22/2016 Lexii Flores, RDarcyN. Medication Administered: DEMEROL [IM] (MEPERIDINE HCL), Dose: 50 mg IM. Medication Ordered: Demerol IM 50 mg (NOW).
== END 2016-09-22 20:35 | disposition home or self-care (01) ==
LOC: ED SRH 17:53
DX: L02.414 Cutaneous abscess of left upper limb (principal); B95.62 Methicillin resistant Staphylococcus aureus infection as the cause of diseases classified elsewhere; F11.20 Opioid dependence, uncomplicated; F15.20 Other stimulant dependence, uncomplicated; F17.210 Nicotine dependence, cigarettes, uncomplicated

== ENCOUNTER 2016-09-26 00:09 | Emergency (ER) | payer OTHER ==
--- NOTE | 2016-09-26 00:57 | ED NURSING NOTES ---
Clinical Report - Nurses [facility] [address] [place] [address] 09/26/2016 0:09 Patient: OTTO FONTANA TRIAGE Triage time 00:20 Sep 26 2016. Acuity: LEVEL 4. Chief Complaint: RECHECK OF WOUND. 00:20 09/26/16. SEPSIS SCREEN: Sepsis Screen. Negative (no infection suspected/documented). ZACH COMA SCORE: Vernalis Coma Scale: 15- eyes open spontaneously (4); best verbal response- oriented x 4 (5); best motor response- obeys commands (6). --00:25 Jia Purcell R.N. Weight: 65 kg stated. Height/Length: 63 inches Per Patient. BMI: 25.4. --00:20 IndJia merchant R.N. Medications Bactrim DS Oral. ClonazePAM Oral 1 mg, as needed, according to JAMIL report, pt did not mention this med. --00:24 InderJia kimball RDarcyN. Medication/allergy information source: the patient. --00:25 IndJia merchant R.N. Allergies No Known Drug Allergy. --00:24 InderJia kimball R.N. History Arrived by private vehicle. Historian: patient. Accompanied by family. The patient has had no complaints since the treatment. ( wound has improved). Previous treatment: Previously seen in ED three days ago. Incision and drainage of abscess performed. SOCIAL HX: Heavy tobacco smoker (cigarette)- less than 1 pack per day. History of heavy drug use: heroin. Recently used drugs today. No infectious disease exposure. ABUSE ASSESSMENT: No report of abuse. FALL RISK ASSESSMENT: Fall risk assessment completed. No fall risk identified. NUTRITIONAL RISK ASSESSMENT: The nutritional risk assessment revealed no deficiencies. FUNCTIONAL ASSESSMENT: Functional assessment: no impairments noted. LEARNING NEEDS ASSESSMENT: The learning needs assessment revealed no barriers. SKIN INTEGRITY ASSESSMENT: Skin integrity risk assessment completed. No skin integrity risk identified. --00:25 Jia Purcell R.N. PROBLEMS: Lifestyle / Substance Problems. Bronchitis. Tetanus Status. Nasal Fracture. Contusion. Hepatitis. Constipation. Abscess. Cystitis. Bowel Obstruction. Migraine Headache. --00:24 Jia Purcell R.N. ADDITIONAL SURGERIES: Appendectomy. Bowel Surgery. . Dilatation & Curettage. Tubal Ligation. --00:24 Jia Purcell R.N. Interventions ID band on patient. --00:25 Jia Purcell R.N. PHYSICAL ASSESSMENT 00:26 09/26/16. ( I&D site left upper arm, 1 cm incision with 1/4inch wide nugauze packing in place.). GENERAL / NEURO / PSYCH: Alert. Oriented X 4. --00:26 Jia Purcell R.N. NURSING PROGRESS NOTES 00:20 09/26/16. Reassurance given. Two patient identifiers checked. Call light placed in reach. Side rails up x 1. Bed placed in lowest position. Brakes of bed on. Patient ready for evaluation- ED physician notified. --00:26 Jia Purcell R.N. 00:25 09/26/16. Applied dressing (1 piece apprx 8 inches long of 1/4 inch nugauze removed from would. Site milked for serosanguous/purulent drainage. Left open for MD evaluation). --00:28 Jia Purcell R.N. 00:45 09/26/2016 Lidocaine-Epinephrine (Lidocaine-Epinephrine) Injection Injectable 2 % given. (given by MD). --00:45 Jia Purcell R.N. 00:50 09/26/16. Applied dressing (See MD report). --01:05 Jia Purcell R.N. DISPOSITION / DISCHARGE 01:09/26/16. Departure time: 01:Sep 26 2016. Condition at departure: improved and stable. The goals identified in the patient's plan of care were met. No learning barriers present. Discharge instructions provided and reviewed with the patient. Patient verbalized understanding. Written instructions provided in Greek. The patient was discharged home and accompanied by spouse. She left the Emergency Department ambulatory and via private vehicle. Spouse driving. --01:07 Jia Purcell R.N. 00:25 09/26/16. BP: 124/74. HR: 110. RR: 18. O2 saturation: 100%. Temp: 97.9 F. Pain level now: 11/24. --01:07 Jia Purcell R.N. Locked/Released at 09/26/2016 1:07 by Jia Purcell R.N.
--- NOTE | 2016-09-26 00:57 | ED CLINICAL REPORT ---
Clinical Report - Physicians/Mid Levels Located Within [facility] [address] [place] [address] 09/26/2016 0:09 Patient: OTTO FONTANA Time Seen: 0015. Arrived- By private vehicle. Historian- patient. HISTORY OF PRESENT ILLNESS Chief Complaint: BOIL. This started past several days and is still present but is improving. It was gradual in onset and has been constant but is not gone now. It is described as painful. It has been located on the left upper extremity. A cause has been identified (asbcess). No recent insect bite. (reports taking abx and wound in improving. reports not being able to see her doctor as directed. states she came here to get it rechecked.). Similar symptoms previously: Several times. Recent medical care: The patient was seen recently in the emergency department. REVIEW OF SYSTEMS No difficulty breathing, nausea or vomiting. All systems otherwise negative, except as recorded above. PAST HISTORY See nurses notes. Tetanus immunization status is up-to-date. Medications: Bactrim DS Oral. ClonazePAM Oral 1 mg, as needed, according to JAMIL report, pt did not mention this med. Allergies: No Known Drug Allergy. SOCIAL HISTORY Smoker- current status unknown. History of drug use: heroin. No alcohol use. No recent travel. Is a local resident. ADDITIONAL NOTES The nursing notes have been reviewed. PHYSICAL EXAM Vital Signs: 09/26/2016 00:25 BP: 124/74. HR: 110. RR: 18. O2 saturation: 100%. Temp: 97.9 F. Pain level now: 5/10. Oxygen saturation normal. Appearance: Alert. Oriented X3. No acute distress. CVS: Normal heart rate and rhythm. Heart sounds normal. Respiratory: No respiratory distress. Breath sounds normal. Chest nontender. Abdomen: Nontender. No organomegaly. Skin: (Area of induration with 1 cm incision in the middle. There is also an area of improving area of cellulitis which is been outlined with a pen to the left upper extremity. no crepitus. wound is slowly draining serosanguinous fluid. mild tenderness over area of induration, appropriate.). Extremities: Normal external inspection. Extremities nontender. Neuro: Oriented X 3. No motor deficit. No sensory deficit. PROGRESS AND PROCEDURES PROCEDURES (The patient was prepped and draped in the normal fashion. The area was cleaned with an alcohol prep plan. Using a Daimond type block, 1% lidocaine with epinephrine was injected around the wound. Excellent analgesia has been obtained. The wound was packed with quarter inch iodoform gauze. A small 1 cm area was left out of the wound to facilitate wicking of material. The wound was covered with clear plastic tape and 4 x 4 gauze. Patient tolerated procedure well. Blood loss is less than 1 cc. No Complications). Course of Care: The patient is a pleasant 31-year-old female with past medical history significant for substance abuse presenting for evaluation of for wound check of abscess. Wound was drained in the emergency department several days ago. Patient reports improved symptoms while on antibiotics. Wound appears to be deep and will need to be repacked after discussing the risks and benefits of doing so. Patient is agreeable to treatment and plan. All questions have been answered. Wound wasrepacked withquarter-inch packing. Patient tolerated procedure well. Please see procedure note for further details. Patient is a good outpatient candidate. No systemic symptoms. Patient is nontoxic. Discussed with patient workup, diagnosis, home care, follow-up, and return precautions. All questions have been answered. The patient is agreeable to the treatment plan. Patient reports that she can follow up with her doctor on Tuesday which is in approximately a day and half. Disposition: Discharged. Condition: good. CLINICAL IMPRESSION Wound check (abscess with packing). INSTRUCTIONS (continue taking your antibiotics as directed). Warnings: GENERAL WARNINGS: Return or contact your physician immediately if your condition worsens or changes unexpectedly, if not improving as expected, or if other problems arise. Specifically return if pain, vomiting, bleeding, breathing difficulty or fever. worsening redness, swelling, or other concerns. Your Current Medications: CONTINUE TAKING THE FOLLOWING MEDICATIONS: Bactrim DS Oral. ClonazePAM Oral : 1 mg, prn, according to JAMIL report, pt did not mention this med. Follow-up: Return to the emergency department as needed. Follow up with your doctor. Reason for referral: recheck today's concerns in 24 - 48 hours. Summary of care provided to patient via paper. Screening today revealed the patient's blood pressure to be in the normal range. The patient should follow up with a primary care provider for blood pressure management. Understanding of the discharge instructions verbalized by patient. (Electronically signed by Terrell Vazquez Dr. 09/26/2016 7:55)
--- NOTE | 2016-09-26 00:57 | ED ORDER SUMMARY ---
..... Patient: OTTO FONTANA OrderSheet [facility] VisitID: [id number] [address] [place] [address] 31y, F Registration Date/Time: 09/26/2016 ORDER SHEET Weight: 65 kg (stated) Allergies: No Known Drug Allergy GENERAL ORDERS: MEDICATION ORDERS: Lidocaine-Epinephrine Injection 1% (NOW, place at bedside, with syringes & needles) (00:37 09/26/2016 Sudeep Jesus) (0:45 Ramirez Peña.Nick) IV FLUIDS: ORDER SHEET NOTES: [Electronically signed by Jia Purcell R.N. (01:07 09/26/2016)] [Electronically signed by Terrell Vazquez Dr. (07:55 09/26/2016)] [Electronically locked/signed by Jia Purcell R.N. (01:07 09/26/2016)]
--- NOTE | 2016-09-26 00:57 | ED ORDER SUMMARY ---
..... Patient: OTTO FONTANA OrderSheet [facility] VisitID: [id number] [address] [place] [address] 31y, F Registration Date/Time: 09/26/2016 ORDER SHEET Weight: 65 kg (stated) Allergies: No Known Drug Allergy GENERAL ORDERS: MEDICATION ORDERS: Lidocaine-Epinephrine Injection 1% (NOW, place at bedside, with syringes & needles) (00:37 09/26/2016 Sudeep Jesus) (0:45 Ramirez Peña.Nick) IV FLUIDS: ORDER SHEET NOTES: [Electronically signed by Jia Purcell R.N. (01:07 09/26/2016)] [Electronically signed by Terrell Vazquez Dr. (07:55 09/26/2016)] [Electronically locked/signed by Jia Purcell R.N. (01:07 09/26/2016)]
--- NOTE | 2016-09-26 07:55 | ED MAR SUMMARY ---
..... Medication Administration Record [facility] [address] [address] Patient: OTTO FONTANA Visit ID: [id number] 31y, F Weight: 65.0 kg Height/Length: 63 in BMI: 25.4 ALLERGIES: No Known Drug Allergy Given 00:45 09/26/2016 Jia Purcell R.N. Medication Administered: LIDOCAINE-EPINEPHRINE [INJECTION] (LIDOCAINE-EPINEPHRINE), Dose: 2 % Injectable Injection. Medication Ordered: Lidocaine-Epinephrine Injection 1% (NOW, place at bedside, with syringes & needles).
--- NOTE | 2016-09-26 07:55 | ED MED RECONCILIATION SUMMARY ---
Patient: OTTO FONTANA Medication Reconciliation Report [facility] VisitID: [id number] [address] [place] [address] 31y, F Registration Date/Time: 09/26/2016 Weight: 65 kg Height/Length: 63 in. BMI: 25.4 ALLERGIES: No Known Drug Allergy The patient's Home Medications are listed below: CONTINUE TAKING THE FOLLOWING MEDICATIONS: Bactrim DS Oral ClonazePAM Oral 1 mg, according to JAMIL report, pt did not mention this med The source(s) of the original Home Medication information: patient The following Medications were given to the patient in the Emergency Department: Lidocaine-Epinephrine [Injection] Injection 2 %, administered: 09/26/2016 12:45:00 AM The following Medications were prescribed to the patient: None.
--- NOTE | 2016-09-26 07:55 | ED DISCHARGE INSTRUCTIONS ---
Patient: OTTO FONTANA General Instructions [facility] VisitID: [id number] [address] [place] [place] [address] 31y, F Registration Date/Time: 09/26/2016 Wound check (abscess with packing). INSTRUCTIONS (continue taking your antibiotics as directed). Warnings: GENERAL WARNINGS: Return or contact your physician immediately if your condition worsens or changes unexpectedly, if not improving as expected, or if other problems arise. Specifically return if pain, vomiting, bleeding, breathing difficulty or fever. worsening redness, swelling, or other concerns. Your Current Medications: CONTINUE TAKING THE FOLLOWING MEDICATIONS: Bactrim DS Oral. ClonazePAM Oral : 1 mg, prn, according to JAMIL report, pt did not mention this med. Follow-up: Return to the emergency department as needed. Follow up with your doctor. Reason for referral: recheck today's concerns in 24 - 48 hours. Summary of care provided to patient via paper. Screening today revealed the patient's blood pressure to be in the normal range. The patient should follow up with a primary care provider for blood pressure management. Understanding of the discharge instructions verbalized by patient. (Electronically signed by Terrell Vazquez Dr. 09/26/2016 7:55)
--- NOTE | 2016-09-26 07:55 | ED MED RECONCILIATION SUMMARY ---
Patient: OTTO FONTANA Medication Reconciliation Report [facility] VisitID: [id number] [address] [place] [address] 31y, F Registration Date/Time: 09/26/2016 Weight: 65 kg Height/Length: 63 in. BMI: 25.4 ALLERGIES: No Known Drug Allergy The patient's Home Medications are listed below: CONTINUE TAKING THE FOLLOWING MEDICATIONS: Bactrim DS Oral ClonazePAM Oral 1 mg, according to JAMIL report, pt did not mention this med The source(s) of the original Home Medication information: patient The following Medications were given to the patient in the Emergency Department: Lidocaine-Epinephrine [Injection] Injection 2 %, administered: 09/26/2016 12:45:00 AM The following Medications were prescribed to the patient: None.
--- NOTE | 2016-09-26 07:55 | ED MAR SUMMARY ---
..... Medication Administration Record Located Within [facility] [address] [place] [address] Patient: OTTO FONTANA Visit ID: [id number] 31y, F Weight: 65.0 kg Height/Length: 63 in BMI: 25.4 ALLERGIES: No Known Drug Allergy Given 00:45 09/26/2016 Jia Purcell R.N. Medication Administered: LIDOCAINE-EPINEPHRINE [INJECTION] (LIDOCAINE-EPINEPHRINE), Dose: 2 % Injectable Injection. Medication Ordered: Lidocaine-Epinephrine Injection 1% (NOW, place at bedside, with syringes & needles).
--- NOTE | 2016-09-26 07:55 | ED DISCHARGE INSTRUCTIONS ---
Patient: OTTO FONTANA General Instructions [facility] VisitID: [id number] [address] [place] [address] 31y, F Registration Date/Time: 09/26/2016 Wound check (abscess with packing). INSTRUCTIONS (continue taking your antibiotics as directed). Warnings: GENERAL WARNINGS: Return or contact your physician immediately if your condition worsens or changes unexpectedly, if not improving as expected, or if other problems arise. Specifically return if pain, vomiting, bleeding, breathing difficulty or fever. worsening redness, swelling, or other concerns. Your Current Medications: CONTINUE TAKING THE FOLLOWING MEDICATIONS: Bactrim DS Oral. ClonazePAM Oral : 1 mg, prn, according to JAMIL report, pt did not mention this med. Follow-up: Return to the emergency department as needed. Follow up with your doctor. Reason for referral: recheck today's concerns in 24 - 48 hours. Summary of care provided to patient via paper. Screening today revealed the patient's blood pressure to be in the normal range. The patient should follow up with a primary care provider for blood pressure management. Understanding of the discharge instructions verbalized by patient. (Electronically signed by Terrell Vazquez Dr. 09/26/2016 7:55)
== END 2016-09-26 00:11 | disposition home or self-care (01) ==
LOC: ED SRH 00:09
DX: L02.414 Cutaneous abscess of left upper limb (principal); Z79.899 Other long term (current) drug therapy